=== PATIENT | male | born 1955 | race Caucasian/White ===

== ENCOUNTER 2017-02-05 07:22 | Day surgery (SDC) | payer OTHER ==
[2017-02-03 10:21] VITALS: BMI 37.3
[2017-02-05] MEDS ORDERED: oxyCODONE HCL 5 MG TABLET PO PRN (09:06)
[2017-02-05] MEDS ORDERED: ONDANSETRON 4 MG/2 ML VIAL IVPUSH PRN (09:06)
[2017-02-05] MEDS ORDERED: PROMETHAZINE HCL 25 MG/1 ML VIAL IVPUSH PRN (09:06)
[2017-02-05] MEDS ORDERED: LACTATED RINGERS SOLUTION 1,000 ML IV SCH (09:15)
[2017-02-05] MEDS ORDERED: MIDAZOLAM HCL 2 MG/2 ML SINGLE DOSE VIAL ONE (09:29)
[2017-02-05] MEDS ORDERED: PROPOFOL 20 ML ONE (09:29)
[2017-02-05] MEDS ORDERED: ROCURONIUM BROMIDE 50 MG/5 ML VIAL ONE (09:29)
[2017-02-05] MEDS ORDERED: ceFAZolin SODIUM 1 GM VIAL ONE (09:30)
[2017-02-05] MEDS ORDERED: LIDOCAINE HCL/PF 2% SDV 5ML VIAL ONE (09:30)
[2017-02-05] MEDS ORDERED: SODIUM CHLORIDE 0.9% P/F 10 ML VIAL IJ ONE (09:30)
[2017-02-05] MEDS ORDERED: LIDOCAINE 1%/EPI 1:100000 (20 ML MULTI DOSE VIAL) ONE (09:33)
[2017-02-05] MEDS ORDERED: DEXAMETHASONE SOD PHOSPHATE 4 MG/1 ML VIAL ONE (09:40)
[2017-02-05] MEDS ORDERED: ceFAZolin SODIUM 1 GM VIAL IVPB ONE (09:45)
[2017-02-05] MEDS ORDERED: PHENYLEPHRINE HCL 10 MG/1 ML SINGLE DOSE VIAL ONE (10:16)
[2017-02-05] MEDS ORDERED: KETOROLAC TROMETHAMINE 30 MG/1 ML VIAL ONE (10:39)
[2017-02-05] MEDS ORDERED: GLYCOPYRROLATE 0.2 MG/1 ML VIAL ONE (10:41)
[2017-02-05] MEDS ORDERED: NEOSTIGMINE METHYLSULFATE 0.5 MG/ML - 10 ML MDV ONE (10:41)
[2017-02-05] MEDS ORDERED: BUPIVACAINE HCL/PF 0.5% (5MG/ML) 10 ML VIAL IJ ONE (11:00)
--- NOTE | 2017-02-05 11:05 | HP ---
[facility]ellite [facility] - Chief Complaint Chief Complaint: left shoulder mass History of Present Illness: left shoulder mass History Source: Patient Limitations to Obtaining History: No Limitations - Past Medical History Allergies/Adverse Reactions: Allergies Allergy/AdvReac Type Severity Reaction Status Date / Time No Known Drug Allergies Allergy Verified 02/03/17 10:13 - Current Medications Current Medications: Home Medications Medication Instructions Recorded Levothyroxine [Synthroid -] 75 mcg PO ASDIR 10/21/13 Losartan Potassium 12.5 mg PO DAILY 10/21/13 Aspirin [ASA -] 81 mg PO DAILY 04/05/15 Atorvastatin Ca [Lipitor] 40 mg PO HS 02/03/17 Sitagliptin Phosphate [Januvia] 100 mg PO DAILY 02/03/17 Tamsulosin HCl [Flomax] 0.4 mg PO DAILY 02/03/17 Canagliflozin [Invokana] 100 mg PO DAILY 02/05/17 Hydrocodone/Acetaminophen [Vicodin 1 - 2 tab PO TID PRN #30 tablet 02/05/17 5-300 mg Tablet] MDD 6 Metformin HCl [Metformin HCl ER] 1,000 mg PO BID 02/05/17 Satellite Physical Exam - Physical Examination Vital Signs: Vital Signs Period Temp Pulse Resp BP Sys/Valenzuela Pulse Ox Last 24 Hr 97.9 F 81 18 133/75 97 General Appearance: Well Nourished ENT: Clear Lung: Clear to auscultation Heart: Regular rate & rhythm Breasts: Soft, Other Abdomen: Soft Extremities: No edema Satellite Impression/Plan - Impression/Plan Impression: left shoulder mass, likely lipoma Operative Procedure: excision mass left shoulder Date to be Performed: 02/05/17
--- NOTE | 2017-02-05 11:06 | OP ---
Operative Note - Note: Operative Date: 02/05/17 Pre-Operative Diagnosis: left shoulder mass Operation: excision mass left shoulder Findings: likely benign lipoma Surgeon: Manuel Lara Anesthesiologist/ASTRONAUT [employer] SPECIALIST: Doni Garnett Anesthesia: General, Local Specimens Removed: lipoma, fatty tissue Estimated Blood Loss (mls): 0 Drains, Volume Out (mls): 0 Blood Volume Replaced (mls): 0 Fluid Volume Replaced (mls): 500 Operative Report Dictated: Yes
--- NOTE | 2017-02-05 11:48 | OP ---
DATE OF OPERATION: 02/05/2017 PREOPERATIVE DIAGNOSIS: Left shoulder mass. POSTOPERATIVE DIAGNOSIS: Left shoulder mass, likely benign lipoma. SURGEON: Manuel Lara MD ICER HAND: None. ANESTHESIA: Doni Garnett MD, LMA anesthesia local injection of 20 mL 0.5% Marcaine, 1% lidocaine mixed with epinephrine. DRAINS: None. COMPLICATIONS: None. SPECIMEN: Tissue left shoulder, lipoma. BLOOD LOSS: Very minimal. BLOOD GIVEN: None. FLUID REPLACEMENT: 500 mL. INDICATIONS: The patient is a 61-year-old male with a preoperative diagnosis of a large mass on the left shoulder. After understanding the potential risks, complications, alternatives, and benefits of surgery versus nonsurgical treatment, the patient elected to undergo this procedure. DESCRIPTION OF PROCEDURE: The patient was brought to the operating room. Peripheral IV placed. IV sedation given. Then 2 g of IV Ancef was given. LMA anesthesia was induced. He was placed in a beach chair position with ample padding throughout. The left upper extremity was prepped and draped in a sterile fashion. A longitudinal incision was marked out with a marking pen. Then 20 mL of 0.5% Marcaine and 1% lidocaine mixed with epinephrine was injected in and around the surgical incision. After waiting 2 minutes, I made a longitudinal incision with a No. 10 scalpel blade. Subcutaneous hemostasis was achieved with a Bovie electrocautery. Dissection through the superficial adipose layer was achieved. Gelpi retractors were placed underneath this layer exposing a large collection of fat looking like a benign lipoma. It was well circumscribed but not well encapsulated. Therefore, it came out in a piecemeal fashion. I was able to dissect with both the Bovie and the Metzenbaum scissors circumferentially around this mass. It was all excised and passed off the field as specimen. The area was copiously irrigated and washed out. Again, the area was explored. No other superficial tissue was identified. The entire lipoma was removed. There was no bleeding. The deltoid looked a little full; therefore, I made a small, longitudinal incision within the fibers of the deltoid through the deltoid fascia with a No. 15 scalpel blade. Dissection was done through the deltoid, and I did not see any other abnormal tissue including any mass or lipoma beneath the deltoid. The area was irrigated and washout and that little deltoid fascial incision closed with 2-0 Vicryl sutures. The deep dermal layer was closed with 2-0 Vicryl. Skin was reapproximated with a running 3-0 V-Lock suture and then Swiftset glue was applied. There was a tiny area where I penetrated the skin slightly posteriorly. This was closed with two 4-0 nylon sutures. Both areas were covered with an Aquacel dressing. Total operative time was about 45 minutes. Brought then out of the beach chair position, extubated, sling was applied, and he was brought to the ambulatory recovery room in stable condition. There were no complications during the case. There was almost no blood loss. Joseph [id number]
[2017-02-05 12:54] VITALS: BP 112/61; PULSE 80; TEMP 98.1
--- NOTE | 2017-02-07 15:24 | PATH ---
Surgical Pathology Report Patient Name: MICHELE OROZCO Med. Rec. #: [id number] /Age/Gender: 1955 (Age: 61) / M Account: [id number] Location: [facility] Taken: 02/05/2017 Received: 02/05/2017 Reported: 02/07/2017 Physicians: Manuel Lara M.D. Specimen(s) Received LEFT SHOULDER MASS Clinical History Left shoulder mass Final Diagnosis SOFT TISSUE, LEFT SHOULDER, EXCISION: LIPOMA. Electronically Signed Dimas Arguelles M.D. Gross Description Received in formalin labeled "left shoulder mass," is a 14.0 x 13.0 x 4.5 cm aggregate of yellow fragments of lobulated adipose tissue. Accounting Practice Manager sections are submitted in 4 cassettes. /02/05/201702/05/2017
== END 2017-02-05 13:00 | disposition home or self-care (01) ==
LOC: JASU-SURG 07:22
PROVIDERS: ATTEND Orthopaedic Surgery
PROC: 0JBF0ZZ Excision of Left Upper Arm Subcutaneous Tissue and Fascia, Open Approach (ICD-10-PCS; principal; 2017-02-05 09:00)
DX: D21.12 Benign neoplasm of connective and other soft tissue of left upper limb, including shoulder (principal)
CPT/HCPCS: 86850; 86900; 86901; 88304-TC; 94760

== ENCOUNTER 2023-06-30 15:13 | Emergency (ER) | payer OTHER ==
[2023-06-30 15:27] VITALS: BMI 35.9
[2023-06-30 16:43] LABS: BASO % 0.9 % (0-2.0); EOS % 0.9 % (0-4.5); HEMATOCRIT 47.6 % (35.4-49); HEMOGLOBIN 16.4 GM/dL (11.7-16.9); LYMPH % 16.7 % (8-40); MCH 30.6 pg (25.7-33.7); MCHC 34.3 g/dl (32.0-35.9); MEAN CELL VOLUME 89.3 fl (80-96); MEAN PLT VOLUME 7.8 fl (7.5-11.1); MONO % 12.6 % (3.8-10.2); NEUT % 68.9 % (42.8-82.8); PLATELET COUNT 198 10^3/uL (134-434); RBC 5.34 M/mm3 (4.00-5.60); WHITE BLOOD COUNT 11.9 K/mm3 (4.0-10.0)
[2023-06-30 16:49] LABS: INR 1.08 (0.83-1.09); PROTHROMBIN TIME (PATIENT) 12.5 SEC (9.7-13.0)
[2023-06-30 17:06] LABS: POTASSIUM 3.5 mmol/L (3.5-5.1)
[2023-06-30 17:08] LABS: BLOOD UREA NITROGEN 15.7 mg/dL (7-18); CALCIUM 9.2 mg/dL (8.5-10.1)
[2023-06-30 17:09] LABS: ALBUMIN 3.8 g/dl (3.4-5.0)
[2023-06-30 17:11] LABS: CREATININE 0.9 mg/dL (0.55-1.3)
[2023-06-30 17:14] LABS: BILIRUBIN,TOTAL 0.8 mg/dL (0.2-1); TOT PROT 7.5 g/dl (6.4-8.2)
[2023-06-30 18:40] VITALS: RESP 18; TEMP 98.5
[2023-06-30] MEDS ORDERED: FAMOTIDINE 20 MG/50 ML IVPB 20 MG/50 ML MG IVPB ONE (19:46)
[2023-06-30] MEDS ORDERED: ACETAMINOPHEN INJECTION 100 ML IVPB ONE (19:46)
[2023-06-30] MEDS: ACETAMINOPHEN 1000 MG/100 ML BAG IVPB ONE (19:51)
[2023-06-30] MEDS: FAMOTIDINE 20 MG/50 ML IVPB 20 MG/50 ML MG IVPB ONE (19:52)
[2023-06-30 21:03] VITALS: BP 105/65; PULSE 88
== END 2023-06-30 22:06 | disposition home or self-care (01) ==
LOC: JER 15:13
PROC: 3E033GC Introduction of Other Therapeutic Substance into Peripheral Vein, Percutaneous Approach (ICD-10-PCS; principal; 2023-06-30)
PROC: 3E033GC Introduction of Other Therapeutic Substance into Peripheral Vein, Percutaneous Approach (ICD-10-PCS; 2023-06-30)
DX: R10.11 Right upper quadrant pain (principal); R05.9 Cough, unspecified; R09.02 Hypoxemia; J18.9 Pneumonia, unspecified organism; Z20.822 Contact with and (suspected) exposure to COVID-19
CPT/HCPCS: 0241U-QW; 36415; 71046-TC-FY; 71260-TC; 74177-TC; 80053; 83690; 84484; 85025; 85610; 86850; 86900; 86901; 93005; 93010; 99285-25; J0131; Q9967

== ENCOUNTER 2023-07-22 05:19 | Day surgery (SDC) | payer OTHER ==
[2023-07-21 12:35] VITALS: BMI 35.9
[2023-07-22 09:33] VITALS: TEMP 97.9
[2023-07-22 11:29] VITALS: BP 116/69; PULSE 74; RESP 20
== END 2023-07-22 11:45 | disposition home or self-care (01) ==
LOC: JASU-ENDO 05:19
PROVIDERS: ATTEND Internal Medicine Gastroenterology
PROC: 0DBL8ZX Excision of Transverse Colon, Via Natural or Artificial Opening Endoscopic, Diagnostic (ICD-10-PCS; principal; 2023-07-22 10:45)
DX: Z12.11 Encounter for screening for malignant neoplasm of colon (principal); K57.30 Diverticulosis of large intestine without perforation or abscess without bleeding; K64.8 Other hemorrhoids; D12.3 Benign neoplasm of transverse colon; Z86.010 Personal history of colon polyps
CPT/HCPCS: 82962; 88305-TC

== ENCOUNTER 2023-08-18 04:25 | Day surgery (SDC) | payer OTHER ==
[2023-08-13 09:24] VITALS: BMI 33.7
[2023-08-18 08:25] VITALS: TEMP 97.8
[2023-08-18 09:01] VITALS: BP 117/63; PULSE 72; RESP 18
== END 2023-08-18 09:04 | disposition home or self-care (01) ==
LOC: JASU-ENDO 04:25
PROVIDERS: ATTEND Internal Medicine Gastroenterology
PROC: 0DB78ZX Excision of Stomach, Pylorus, Via Natural or Artificial Opening Endoscopic, Diagnostic (ICD-10-PCS; 2023-08-18)
PROC: 0DB68ZX Excision of Stomach, Via Natural or Artificial Opening Endoscopic, Diagnostic (ICD-10-PCS; 2023-08-18)
PROC: 0DB48ZX Excision of Esophagogastric Junction, Via Natural or Artificial Opening Endoscopic, Diagnostic (ICD-10-PCS; 2023-08-18)
PROC: 0DB98ZX Excision of Duodenum, Via Natural or Artificial Opening Endoscopic, Diagnostic (ICD-10-PCS; principal; 2023-08-18 08:00)
DX: K21.00 Gastro-esophageal reflux disease with esophagitis, without bleeding (principal); K44.9 Diaphragmatic hernia without obstruction or gangrene; K29.60 Other gastritis without bleeding; K29.80 Duodenitis without bleeding; Z87.19 Personal history of other diseases of the digestive system; E11.9 Type 2 diabetes mellitus without complications; Z79.84 Long term (current) use of oral hypoglycemic drugs
CPT/HCPCS: 82962; 88305-TC; 88312-TC; 88342-TC